=== PATIENT | female | born 1960 | race Caucasian/White ===

== ENCOUNTER 2018-05-14 11:57 | Emergency (ER) | payer MEDICARE ==
[~2018-05-14] VITALS: Ht 167.6 cm; Wt 54.5 kg
[2018-05-14 11:59] VITALS: Ht 167.6 cm; Wt 54.5 kg
[2018-05-14] MEDS ORDERED: KEPPRA500 MG (12:02)
[2018-05-14] MEDS ORDERED: LOZOL1.25 MG (12:02)
[2018-05-14] MEDS ORDERED: TIROSINT100 MCG (12:02)
[2018-05-14] MEDS ORDERED: FOLIC ACID1 MG (12:02)
[2018-05-14] MEDS ORDERED: METOPROLOL TART50 MG PO (12:02)
[2018-05-14] MEDS ORDERED: ULTRAM50 MG PO (12:03)
[2018-05-14] MEDS ORDERED: CELEXA40 MG (12:03)
[2018-05-14 12:48] LABS: ALBUMIN 3.8 g/dL (3.4-5.0); ALKALINE PHOSPHATASE 85 U/L (46-116); ALT (SGPT) 73 U/L (10-68); BASOPHILS 0.5 % (0-2); BILIRUBIN - TOTAL 0.27 mg/dL (0.2-1.3); CALC OSMOLALITY 263 mosm/kg (275-300); CALCIUM 9.2 mg/dL (8.5-10.1); CARBON DIOXIDE 26.4 mmol/L (21.0-32.0); CHLORIDE - SERUM 94 mmol/L (98-107); CREATININE - SERUM 0.6 mg/dL (0.6-1.3); EOSINOPHILS 0.7 % (0-7); GLUCOSE 91 mg/dL (74-106); HEMATOCRIT 45.3 % (36.0-48.0); HEMOGLOBIN 16.3 g/dL (12-16); IMMATURE GRANULOCYTES 0.1 % (0-5); LYMPHOCYTES 19.5 % (15-50); MCH 34.5 pg (26.0-34.0); MEAN PLATELET VOLUME 11.4 fL (7.4-10.4); MONOCYTES 5.7 % (2-11); NEUTROPHILS 73.5 % (40-80); PLATELET COUNT 268 10x3/uL (130-400); POTASSIUM - SERUM 3.4 mmol/L (3.5-5.1); PROTEIN - SERUM 8.3 g/dL (6.4-8.2); RBC 4.72 10x6/uL (4.00-5.40); SODIUM 133 mmol/L (136-145); UREA NITROGEN 7 mg/dL (7-18); WBC 10.2 10x3/uL (4.8-10.8); eGFR NON AFRICAN AMERICAN > 90 mL/min (90-120)
[2018-05-14 13:06] LABS: CKMB 0.9 U/L (0.0-3.6); CREATINE KINASE 68 UL (21-215); MAGNESIUM - SERUM 1.7 mg/dL (1.8-2.4); PRO BNP 40 pg/mL (0-125); TROPONIN-I < 0.017 ng/mL (0.000-0.060)
[2018-05-14 14:47] LABS: APPEARANCE SL CLDY (CLEAR); BACTERIA MANY /hpf (NONE SEEN); BILIRUBIN NEGATIVE (NEGATIVE); COLOR YELLOW (YELLOW); EPITHELIAL CELLS 0-5 /hpf (0-5); GLUCOSE NEGATIVE (NEGATIVE); GRANULAR CAST RARE /lpf (NONE SEEN); HYALINE CAST 0-5 /lpf (NONE SEEN); KETONE MODERATE mg/dL (NEGATIVE); MUCUS <1+ /lpf (NONE SEEN); NITRITE POSITIVE (NEGATIVE); PROTEIN TRACE mg/dL (NEGATIVE); RED CELLS - URINE RARE /hpf (0-5); WHITE CELLS - URINE OCC /hpf (0-5)
[2018-05-14] MEDS ORDERED: MACROBID100 MG PO (16:28)
[2018-05-14 17:24] VITALS: BP 136/92
== END 2018-05-14 17:15 | disposition home or self-care (01) ==
LOC: D.ER 11:57
PROVIDERS: Family Medicine
DX: N39.0 Urinary tract infection, site not specified (principal); R55 Syncope and collapse